=== PATIENT | male | born 1965 | race Caucasian/White ===

== ENCOUNTER → 2020-09-01 | Outpatient (CLI) | payer BC ==
--- NOTE | 2020-09-01 16:36 | ECGEPIP ---
[facility] Test Date: 2020-09-01 Pat Name: SOBIA JAMESON Department: Room: - Gender: Male [employer] Representative: STUART : 1965 Requested By: ANGEL Jaquez Order Number: [id number] Reading MD: Jena Weir Measurements Intervals Agar Rate: 75 P: 33 AL: 160 QRS: 20 QRSD: 91 T: 29 QT: 352 QTc: 395 Interpretive Statements SINUS RHYTHM Electronically Signed on 09-01-2020 16:35:22 EST by Jena Weir
== END ==
LOC: M EKG 16:07
PROVIDERS: ATTEND Urology
DX: N43.3 Hydrocele, unspecified (principal)

== ENCOUNTER → 2020-09-14 | Outpatient (CLI) | payer OTHER, BC ==
[~2020-09-14] MED LIST: IRBE300T12 PO; METF850T4 PO
== END ==
LOC: M LABSMTC 09:36
PROVIDERS: ATTEND Anesthesiology
DX: Z11.59 Encounter for screening for other viral diseases (principal)

== ENCOUNTER 2020-09-19 07:20 | Day surgery (SDC) | payer BC ==
[~2020-09-19] VITALS: Ht 177.8 cm; Wt 103.1 kg
[~2020-09-19 07:20] MED LIST changes: +LR 1,000 ML IV ONE
[2020-09-19] MEDS ORDERED: propofoL 200 MG/20 ML VIAL As Ordered ONE ×2 (08:11→08:45)
[2020-09-19] MEDS ORDERED: fentaNYL 250 MCG/5 ML INJECTION (J3010) As Ordered ONE (08:12)
[2020-09-19] MEDS ORDERED: MIDAZOLAM INJ 2MG/2ML VIAL (J2250 PER 1MG) As Ordered ONE (08:12)
[2020-09-19] MEDS ORDERED: LIDOCAINE 2% 100MG/5ML SDV (FOR ANES.) As Ordered ONE (08:12)
[2020-09-19] MEDS ORDERED: BUPIVACAINE HCL 0.25% 30ML VIAL As Ordered ONE (08:32)
[2020-09-19] MEDS ORDERED: LIDOCAINE 2% MDV 20ML VIAL As Ordered ONE (08:33)
[2020-09-19] MEDS ORDERED: METOCLOPRAMIDE INJ 10MG/2ML VIAL (J2765 PER 1) As Ordered ONE (09:08)
[2020-09-19] MEDS ORDERED: dexameTHASONE 4 MG/ML 1ML VIAL (J1100 PER 1MG) As Ordered ONE ×2 (09:08→10:39)
[2020-09-19] MEDS ORDERED: KETOROLAC 60MG 2ML VIAL As Ordered ONE (09:08)
[2020-09-19] MEDS ORDERED: ONDANSETRON 4MG/2ML VIAL As Ordered ONE ×2 (09:08→10:39)
[2020-09-19] MEDS ORDERED: ACETAMINOPHEN 1000MG 100ML IV BTL (OFIRMEV) (J0131 PER 10MG) As Ordered ONE (09:13)
[2020-09-19] MEDS ORDERED: NORCO, ANEXSIA 5/325MG TABLET (HYDROcodone/ACETAMINOPHEN) PO PRN (10:00)
[2020-09-19] MEDS ORDERED: HYDR-3715 PO (10:13)
[2020-09-19] MEDS ORDERED: LR 1,000 ML IV SCH (10:30)
[2020-09-19] MEDS ORDERED: fentaNYL 100 MCG/2 ML INJECTION (J3010) IV PRN (10:30)
[2020-09-19] MEDS ORDERED: PERCOCET 5MG/325MG TAB PO PRN (10:30)
[2020-09-19] MEDS ORDERED: ONDANSETRON 4MG/2ML VIAL IV PRN (10:30)
[2020-09-19] MEDS ORDERED: METOCLOPRAMIDE INJ 10MG/2ML VIAL (J2765 PER 1) IV PRN (10:30)
[2020-09-19] MEDS ORDERED: ePHEDrine SULFATE 25 MG/5 ML(5MG/ML) SYRINGE As Ordered ONE (10:37)
[2020-09-19] MEDS ORDERED: NORCO, ANEXSIA 5/325MG TABLET (HYDROcodone/ACETAMINOPHEN) PO ONE (11:00)
[2020-09-19 11:06] VITALS: BP 124/75
--- NOTE | 2020-09-19 11:49 | RO ---
OPERATIVE NOTE DATE OF OPERATION: 09/19/2020 PREOPERATIVE DIAGNOSIS: Left hydrocele. POSTOPERATIVE DIAGNOSIS: Left hydrocele. PROCEDURE: Left scrotal hydrocelectomy. SURGEON: Adam Licona M.D. ANESTHESIA: General. 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 He comes for elective repair. DESCRIPTION OF PROCEDURE: After receiving informed consent from the patient, he was taken to the operating room, where after induction of adequate anesthetic, he is prepped and draped in the usual manner. A transverse scrotal incision was made in the left hemiscrotum and deep into the scrotal tendons. We pre-placed 1% Lidocaine and 0.5% plain local anesthetic. After reaching the tunica vaginalis, we mobilized this area and then opened it to drain approximately 350 mL of straw colored fluid. We were then able to deliver the testis and free the tunica vaginalis from any remaining scrotal structures. Careful attention to hemostasis was made with electrocautery. Redundant portions of the tunica vaginalis were excised. The tunica vaginalis was tacked posterior to the cord. A careful check was then again made for hemostasis and the testicles were placed in anatomic position back in the left hemiscrotum. Closure was effective with running 3-0 Chromic on the dartos fascia and horizontal mattress 3-0 Chromic on the skin. Sterile dressings were applied. The patient went to recovery in satisfactory condition, where an ice pack was promptly placed. DISPOSITION: Dismissed home on [place] 7 one p.o. Every four hours p.r.n. pain, bed test, and ice pack until morning. Limited activity for a week. Follow-up in two to three weeks. Diet as tolerated.
== END 2020-09-19 11:45 | disposition home or self-care (01) ==
LOC: M SDC 07:20
PROVIDERS: ATTEND Urology
DX: N43.3 Hydrocele, unspecified (principal); I10 Essential (primary) hypertension; E11.9 Type 2 diabetes mellitus without complications; Z79.899 Other long term (current) drug therapy
CPT/HCPCS: 55040; J0131; J1100; J1885; J2250; J2405; J2765; J3010

== ENCOUNTER → 2021-05-26 | Outpatient (REF) | payer BC ==
[~2021-05-26] MED LIST changes: +HYDR-3715 PO; -LR 1,000 ML IV ONE
== END ==
LOC: M LAB REF 17:16
PROVIDERS: ATTEND Internal Medicine Endocrinology, Diabetes & Metabolism
DX: E04.2 Nontoxic multinodular goiter (principal)

== ENCOUNTER → 2023-11-28 | Outpatient (CLI) | payer BC | LOC: M PLALAB 14:46 | PROVIDERS: ATTEND Physician Assistant | DX: R97.20 Elevated prostate specific antigen [PSA] (principal) ==